=== PATIENT | female | born 1945 | race Caucasian/White ===

== ENCOUNTER 2016-10-27 09:44 | Emergency (ER) | payer MEDICARE, BC ==
--- NOTE | 2016-10-27 09:49 | ED ---
Skin Complaint - HPI Summary HPI Summary: 71 YEAR OLD FEMALE PRESENTS WITH COMPLAINS OF LEFT HAND WOUND SECONDARY TO A DOG BITE. - History of Current Complaint Time Seen by Provider: 10/27/16 09:48 Stated Complaint: LEFT HAND SCRAPE - Allergy/Home Medications Allergies/Adverse Reactions: Allergies Allergy/AdvReac Type Severity Reaction Status Date / Time No Known Allergies Allergy Verified 10/27/16 09:52 Home Medications: Home Medications Mometasone 220 MCG MDI * [Asmanex 220 MCG MDI *] 1 puff INH DAILY 10/27/16 [ History Confirmed 10/27/16] PMH/Surg Hx/FS Hx/Imm Hx Endocrine/Hematology History: Reports: Hx Thyroid Disease - hypo - Cancer History Hx Chemotherapy: No Hx Radiation Therapy: No - Surgical History Surgery Procedure, Year, and Place: hysterectomy. breast bx-benign - Family History Known Family History: Positive: None - Social History Alcohol Use: Weekly Alcohol Amount: few beers a week Substance Use Type: Reports: None Smoking Status (MU): Former Smoker Review of Systems Positive: Other - DOG BITE DORSUM LEFT HAND All Other Systems Reviewed And Are Negative: Yes Physical Exam Triage Information Reviewed: Yes Skin: Positive: Tender - DOG BITE DORSUM LEFT HAND Course/Dx - Diagnoses Provider Diagnoses: Dog bite Discharge - Discharge Plan Condition: Stable Disposition: HOME Prescriptions: Amoxicillin/Clavulanate TAB* [Augmentin TAB 875*] 875 mg PO BID #20 tab Mupirocin 2% OINT* [Bactroban 2 % Oint*] 1 applic TOPICAL BID #1 tube Patient Education Materials: Animal Bite (ED), Abrasion (ED) Referrals: Shemar Rust MD [Medical Doctor] - If Needed
[2016-10-27 09:55] VITALS: BP 132/63
== END 2016-10-27 10:22 | disposition home or self-care (01) ==
LOC: UCCORT 09:44
DX: S61.452A Open bite of left hand, initial encounter (principal); W54.0XXA Bitten by dog, initial encounter; Y92.9 Unspecified place or not applicable; Z87.891 Personal history of nicotine dependence
CPT/HCPCS: 99212; G0463